=== PATIENT | male | born 1990 | race Caucasian/White ===

== ENCOUNTER 2022-07-19 14:16 | Emergency (ER) | payer OTHER ==
[~2022-07-19] VITALS: Ht 172.7 cm; Wt 55.7 kg
[2022-07-19 15:04] VITALS: BP 117/55
[2022-07-19] MEDS ORDERED: TETANUS-DIPTH-ACEL PERTUSSIS 0.5ML SYR Tdap IM ONE (15:30)
[2022-07-19] MEDS ORDERED: CEPH-510 PO (15:30)
== END 2022-07-19 15:54 | disposition home or self-care (01) ==
LOC: ER 14:18
DX: S61.511A Laceration without foreign body of right wrist, initial encounter (principal); W26.9XXA Contact with unspecified sharp object(s), initial encounter; Y93.89 Activity, other specified; Y92.89 Other specified places as the place of occurrence of the external cause; Y99.8 Other external cause status
CPT/HCPCS: 12002; 90471; 90715